=== PATIENT | male | born 1945 | race Caucasian/White ===

== ENCOUNTER 2016-05-06 21:38 | Emergency (ER) | payer OTHER ==
[2016-05-06 23:09] LABS: INFLUENZA A SCREEN NEGATIVE (NEGATIVE); INFLUENZA B SCREEN NEGATIVE (NEGATIVE)
[2016-05-06 23:09] LABS: HEMATOCRIT 31.7 % (40.0-51.0); HEMOGLOBIN 10.2 g/dL (13.6-17.8); MEAN CORPUSCULAR HEMOGLOB 32.7 pg (26.0-34.0); MEAN CORPUSCULAR VOLUME 101.6 fL (80-100); MEAN PLATELET VOLUME 10.8 fL (9.2-13.0); NUCLEATED RED BLOOD CELLS 3.6 /100WBC (0-0); RBC DISTRIBUTION WIDTH 19.5 % (12.0-16.0); RED CELL COUNT 3.12 10/6/uL (4.7-6.1)
[2016-05-06 23:10] LABS: ER CBC TAT 0 Hrs 10 Mins; MEAN CORPUS HGB CONC 32.2 g/dL (32.0-36.0); PLATELET COUNT 62 10/3/uL (150-400); WHITE BLOOD CELLS 44.1 10/3/uL (4.5-10.5)
[2016-05-06 23:12] LABS: MANUAL DIFF YES %
[2016-05-06 23:18] LABS: ALBUMIN 3.7 G/DL (3.5-5.0); ALKALINE PHOSPHATASE 92 U/L (45-117); CALCIUM, SERUM 8.3 MG/DL (8.5-10.4); CHLORIDE, SERUM 99 MMOL/L (96-112); CO2 (CARBON DIOXIDE) 26 MMOL/L (24-34); CREATININE 1.34 MG/DL (0.70-1.30); GFR AFRICAN AMERICAN 61 ML/MIN (>=60); GFR NON AFRICAN AMERICAN 53 ML/MIN (>=60); POTASSIUM, SERUM 4.2 MMOL/L (3.5-5.3); SGOT(AST) 43 U/L (5-40); SGPT(ALT) 20 U/L (5-65); SODIUM, SERUM 135 MMOL/L (135-148); TOTAL PROTEIN 8.6 G/DL (6.0-8.5)
[2016-05-06 23:19] LABS: A/G RATIO 0.8 (0.7-1.9); BUN (BLOOD UREA NITROGEN) 28 MG/DL (6-23); GLOBULIN 4.9 G/DL (2.5-4.1); GLUCOSE, SERUM 136 MG/DL (60-99); TOTAL BILIRUBIN 1.1 MG/DL (0-1.2)
[2016-05-06 23:20] LABS: LACTATE 1.9 MMOL/L (0.3-2.4)
[2016-05-06 23:46] LABS: BAND NEUTROPHILS 27 %; BASOPHILS 2 %; BASOPHILS ABSOLUTE (CALC) 0.88 10/3/uL (0.0-0.16); EOSINOPHILS 2 %; EOSINOPHILS ABSOLUTE (CALC) 0.88 10/3/uL (0.0-0.53); ER DIFF TAT 0 Hrs 46 Mins; IMMATURE GRANS ABSOLUTE (CALC) 7.06 10/3/uL (0.0-0.11); LYMPHOCYTES 6 %; LYMPHOCYTES ABSOLUTE (CALC) 2.65 10/3/uL (0.67-4.30); METAMYELOCYTES 11 %; MONOCYTES 12 %; MONOCYTES ABSOLUTE (CALC) 5.29 10/3/uL (0.21-1.20); MYELOCYTES 5 %; NEUTROPHILS ABSOLUTE (CALC) 27.34 10/3/uL (2.02-8.40); SEGMENTED NEUTROPHIL (0) 35 %; TOTAL NUCLEATED CELLS 100
[2016-05-06 23:47] LABS: ANISOCYTOSIS 1+ (5-10/OIF) (0-5/OIF); PATH REVIEW YES; PLATELET ESTIMATE DEC (ADEQUATE)
[2016-05-06 23:48] LABS: POLYCHROMASIA 1+ (2-5/OIF) (0-1/OIF)
[2016-05-07 09:12] LABS: PATH REVIEW SEE PATHOLOGY REPORT
== END 2016-05-07 00:15 | disposition home or self-care (01) ==
LOC: ER 21:38
PROVIDERS: Nurse Practitioner
DX: J40 Bronchitis, not specified as acute or chronic (principal); Z87.891 Personal history of nicotine dependence; Z85.6 Personal history of leukemia
CPT/HCPCS: 71010; 80053; 83605; 85025; 87040; 87070; 87077; 87186; 87804; 87880; 94640; 96374; 99284; A9270-GY